=== PATIENT | female | born 1960 | race Caucasian/White ===

== ENCOUNTER 2018-02-21 08:33 | Day surgery (SDC) | payer OTHER ==
[2018-02-19 17:47] VITALS: BMI 29.0
[2018-02-21] MEDS ORDERED: BUPIVACAINE HCL/PF 0.5% (5MG/ML) 10 ML VIAL ONE (09:25)
[2018-02-21] MEDS ORDERED: MIDAZOLAM HCL 2 MG/2 ML SINGLE DOSE VIAL ONE (09:35)
[2018-02-21] MEDS ORDERED: ONDANSETRON 4 MG/2 ML VIAL IVPUSH PRN (09:49)
[2018-02-21] MEDS ORDERED: oxyCODONE HCL 5 MG TABLET PO PRN (09:49)
[2018-02-21] MEDS ORDERED: LACTATED RINGERS SOLUTION 1,000 ML IV SCH (10:00)
--- NOTE | 2018-02-21 10:12 | HP ---
History & Physical Update - History History: No Change - Physical Physical: No Change - Assessment Assessment: No Change - Plan Plan: No Change
[2018-02-21] MEDS ORDERED: CLINDAMYCIN PHOSPHATE 600 MG/4 ML VIAL IVPB ONE (10:30)
[2018-02-21] MEDS ORDERED: CLINDAMYCIN PHOSPHATE 600 MG/4 ML VIAL ONE (10:33)
[2018-02-21] MEDS ORDERED: ePHEDrine SULFATE 50 MG/1 ML AMPULE ONE (11:00)
[2018-02-21] MEDS ORDERED: BACITRACIN 15 GM TUBE TOPICAL OINTMENT ONE (11:03)
--- NOTE | 2018-02-21 11:25 | OP ---
Operative Note - Note: Operative Date: 02/21/18 Pre-Operative Diagnosis: Multiple scalp cysts Operation: Excision multiple scalp cysts Findings: 3 x 2.5 cm and 6 x 6 cm scalp cysts Surgeon: Mehul Whitt Anesthesia: General Specimens Removed: scalp cysts Estimated Blood Loss (mls): 5 Operative Report Dictated: Yes
--- NOTE | 2018-02-21 11:58 | OP ---
DATE OF OPERATION: 02/21/2018 LOCATION: Ambulatory Surgery. PROCEDURE: Excision of multiple scalp cysts (2). PREOPERATIVE DIAGNOSIS: Multiple scalp cysts (2). POSTOPERATIVE DIAGNOSIS: Multiple scalp cysts (2). SURGEON: Mehul Whitt MD ANESTHESIA: General endotracheal. FINDINGS OF PROCEDURE: This is a 57-year-old female who presents with of slowly growing cystic lesion of the scalp at the left parietal region. On physical exam, patient has a two 3 x 2.5 cm scalp cysts of the left frontoparietal area and a 6 x 6 cm cystic lesion of the left parietooccipital area of the scalp. Because of the association with pain, patient desired excision of the cyst and consent was obtained after discussing the risks, benefits, and alternatives of the procedure. DESCRIPTION OF PROCEDURE: Patient was brought to the operating room and placed in supine position. General endotracheal anesthesia was administered. Patient was then placed in a beach chair position with the head turned to the right. The operative site was prepped and draped in the usual sterile fashion using lidocaine 1% with epinephrine. Field block anesthesia was administered for possible analgesia and hemostasis. Using scalp blade number 15, the anterior cyst was excised by making a 2 cm elliptical incision with dissection carried down to the dermis. Using the Metzenbaum scissors, further dissection was done until the cyst was completely excised with an ellipse of skin. Hemostasis was achieved using Bovie cautery of the wound. The wound was closed with meseret. Otherwise, posterior cyst was also excised in the same manner and hemostasis was achieved also using Bovie cautery. The wound was closed also with skin meseret. The wounds were dressed with Bacitracin ointment. Patient was successfully extubated and transferred to the postanesthesia care unit in satisfactory condition. ESTIMATED BLOOD LOSS: About 5 mL. WOUND CLASS: Clean. Patient received 600 mg of clindamycin prior to start of the procedure. Gold [id number] MTDD
[2018-02-21] MEDS ORDERED: ACETAMINOPHEN 325 MG TABLET (FP) ONE (12:39)
[2018-02-21] MEDS ORDERED: ACETAMINOPHEN 325 MG TABLET (FP) PO ONE (12:41)
[2018-02-21 15:30] VITALS: TEMP 97.8
[2018-02-21 16:13] VITALS: BP 122/70; PULSE 70
--- NOTE | 2018-02-25 16:25 | PATH ---
Surgical Pathology Report Patient Name: PAT BOYKIN [facility]. Rec. #: [id number] /Age/Gender: 1960 (Age: 57) / F Account: [id number] Location: [facility] Taken: 02/21/2018 Received: 02/21/2018 Reported: 02/25/2018 Physicians: Mehul Whitt M.D. Specimen(s) Received MULTIPLE SCALP CYST Clinical History Multiple scalp cysts Final Diagnosis SCALP, MULTIPLE CYSTS, EXCISION: TRICHILEMMALCYSTS (PILAR CYST) WITH FOCAL CALCIFICATION. Electronically Signed Letty Wells M.D. Gross Description Received in formalin labeled "multiple scalp cysts," are 2 rao cystic structures measuring 2.5 x 2.1 x 1.4 cm and 5.0 x 3.7 x 3.0 cm. Both portions are surfaced by rao, unremarkable skin with attached hair. The larger cyst is focally disrupted. Comptometer Operator sections are submitted in 2 cassettes as follows: 1-smaller cyst; 2-3-larger cyst. /02/24/2018 saudi/02/24/2018
== END 2018-02-21 14:10 | disposition home or self-care (01) ==
LOC: JASU-SURG 08:33
PROVIDERS: ATTEND Surgery
PROC: 0HB0XZZ Excision of Scalp Skin, External Approach (ICD-10-PCS; principal; 2018-02-21 10:00)
DX: L72.12 Trichodermal cyst (principal)
CPT/HCPCS: 88304-TC; 94760

== ENCOUNTER 2019-05-20 06:04 | Emergency (ER) | payer OTHER ==
[2019-05-20 07:11] VITALS: BMI 34.2
--- NOTE | 2019-05-20 07:47 | PDOC ---
History of Present Illness - General Chief Complaint: Edema Stated Complaint: BI LATERAL LEG EDEMA Time Seen by Provider: 05/20/19 07:35 - History of Present Illness Initial Comments: 05/20/19 07:46 CHIEF COMPLAINT: edema HISTORY OF PRESENT ILLNESS: 58 yo F with hx of acromegaly (followed by Dr. Carrasco) CHF, HTN, pituitary tumor surgery presents to ED with b/l pitting edema x 1 month, more severe to the R leg with tightness and pain. Patient reports she has tried to self treat by elevating feet and taking extra doses of her bumetadine without relief. Patient reports a 20 lb weight gain in the last month. Patient denies shortness of breath or chest pain. PCP: Diana No recent travel or sick contacts. PAST MEDICAL HISTORY: acromegaly, CHF, HTN FAMILY HISTORY: Denies SOCIAL HISTORY: Denies tobacco, alcohol, illicit drug use. SURGICAL HISTORY: pituitary tumor surgery ALLERGIES: PCN REVIEW OF SYSTEMS General/Constitutional: Denies fever or chills. Denies weakness, weight change. HEENT: Denies change in vision. Denies ear pain or discharge. Denies sore throat. Cardiovascular: Denies chest pain or shortness of breath. Respiratory: Denies cough, wheezing, or hemoptysis. Gastrointestinal: Denies nausea, vomiting, diarrhea or constipation. Denies rectal bleeding. Genitourinary: Denies dysuria, frequency, or change in urination. Musculoskeletal: Edema to b/l lower extremities. Skin: Denies rash or easy bruising. Neurologic: Denies headache, vertigo, loss of consciousness, or loss of sensation. Psychiatric: Denies depression or anxiety. PHYSICAL EXAM General Appearance: Well-appearing, appropriately dressed. No apparent distress , no intoxication. HEENT: EOMI, PERRLA, normal ENT inspection, normal voice, TMs normal, pharynx normal. No conjunctival pallor. No photophobia, scleral icterus. Neck: Supple. Trachea midline. No tenderness, rigidity, carotid bruit, stridor , lymphadenopathy, or thyromegaly. Respiratory/Chest: Lungs CTAB. No shortness of breath, chest tenderness, respiratory distress, accessory muscle use. No crackles, rales, rhonchi, stridor , wheezing, dullness Cardiovascular: RRR. S1, S2. No JVD, murmur, bradycardia, tachycardia. Vascular Pulses: Dorsalis-Pedis (R): 2+, Dorsalis-Pedis (L): 2+ Gastrointestinal/Abdominal: Normal bowel sounds. Abdomen soft, non-distended. No tenderness or rebound tenderness. No organomegaly, pulsatile mass, guarding , hernia, hepatomegaly, splenomegaly. Musculoskeletal/Extremities: 3+ lower extremity and pedal edema. + R calf tenderness with erythema. FROM of all extremities. Pelvis Stable. No CVA tenderness. Integumentary: Appropriate color, dry, warm. No cyanosis, erythema, jaundice or rash Neurologic: remote mortgage underwriter II-XII intact. Fully oriented, alert. Appropriate mood/affect. Motor strength 5/5. No appreciable EOM palsy, facial droop or sensory deficit. Past History - Past Medical History Allergies/Adverse Reactions: Allergies Allergy/AdvReac Type Severity Reaction Status Date / Time Penicillins Allergy Mild Rash Verified 05/20/19 07:12 Home Medications: Ambulatory Orders Lisinopril [Prinivil] 40 mg PO DAILY 01/03/13 Potassium Chloride [K-Dur -] 10 meq PO BID 01/03/13 Atenolol [Tenormin] 25 mg PO DAILY 03/01/15 Bumetanide 1 mg PO DAILY 03/01/15 Simvastatin [Zocor -] 5 mg PO ONCE 03/01/15 Pasireotide Pamoate [Signifor Lar] 40 mg IM MONTHLY 02/19/18 Tramadol HCl 50 mg PO QID PRN #20 tablet MDD 4 02/21/18 Anemia: (past hx) Cancer: Yes (PITUITARY TUMOR-ACROMEGALY) CHF: Yes (dx 2011) HTN: Yes Hypercholesterolemia: Yes - Surgical History Abdominal Surgery: Yes - Psycho Social/Smoking Cessation Hx Smoking Status: No Smoking History: Never smoked Have you smoked in the past 12 months: No Number of Cigarettes Smoked Daily: 0 Hx Alcohol Use: No Drug/Substance Use Hx: No Substance Use Type: None Hx Substance Use Treatment: No *Physical Exam - Vital Signs Last Vital Signs Temp Pulse Resp BP Pulse Ox 97.6 F 82 18 144/66 98 05/20/19 06:05 05/20/19 06:05 05/20/19 06:05 05/20/19 06:05 05/20/19 06:05 ED Treatment Course - LABORATORY CBC & Chemistry Diagram: 05/20/19 08:00 05/20/19 08:00 Medical Decision Making - Medical Decision Making 05/20/19 08:47 58 yo F with hx of acromegaly (followed by Dr. Carrasco) CHF, HTN, pituitary tumor surgery presents to ED with b/l pitting edema x 1 month, more severe to the R leg with tightness and pain. -EKG -labs -US 05/20/19 09:15 Us negative for DVT. -Lasix 40 mg IV Labs unremarkable. Patient to f/u with PCP. Referral provided as patient states her previous has left the practice. Advised patient to take medication as prescribed and follow up with PCP within the next week. Advised patient of signs and symptoms for return to ED. Patient verbalized understanding and agrees to plan. Discharge - Discharge Information Problems reviewed: Yes Clinical Impression/Diagnosis: Peripheral edema Condition: Stable Disposition: HOME - Admission No - Follow up/Referral Referrals: Rodney Graves MD [Staff Physician] - - Patient Discharge Instructions Patient Printed Discharge Instructions: DI for Peripheral Edema -- Bilateral - Post Discharge Activity
--- NOTE | 2019-05-20 08:24 | PDOC ---
*Physical Exam - Vital Signs Last Vital Signs Temp Pulse Resp BP Pulse Ox 97.6 F 82 18 144/66 98 05/20/19 06:05 05/20/19 06:05 05/20/19 06:05 05/20/19 06:05 05/20/19 06:05 - Physical Exam 05/20/19 08:24 The patient was examined by [JESSICA Amezquita] under my direct supervision. I personally evaluated the patient. I concur with the above findings and the plan of care. ED Treatment Course - LABORATORY CBC & Chemistry Diagram: 05/20/19 08:00 05/20/19 08:00 Discharge - Discharge Information Problems reviewed: Yes Clinical Impression/Diagnosis: Peripheral edema Condition: Stable Disposition: HOME - Follow up/Referral Referrals: Rodney Graves MD [Staff Physician] - - Patient Discharge Instructions Patient Printed Discharge Instructions: DI for Peripheral Edema -- Bilateral - Post Discharge Activity
[2019-05-20 08:31] LABS: BASO % 1.5 % (0-2.0); EOS % 2.9 % (0-4.5); HEMATOCRIT 30.9 % (32.4-45.2); HEMOGLOBIN 10.5 GM/dL (10.7-15.3); LYMPH % 24.5 % (8-40); MCH 30.2 pg (25.7-33.7); MEAN CELL VOLUME 88.9 fl (80-96); MEAN PLT VOLUME 8.5 fl (7.5-11.1); MONO % 7.6 % (3.8-10.2); NEUT % 63.5 % (42.8-82.8); PLATELET COUNT 289 K/MM3 (134-434); RBC 3.47 M/mm3 (3.60-5.2); RDW 14.9 % (11.6-15.6); WHITE BLOOD COUNT 6.5 K/mm3 (4.0-10.0)
[2019-05-20 08:49] LABS: INR 1.07 (0.83-1.09); PROTHROMBIN TIME (PATIENT) 12.6 SEC (9.7-13.0)
[2019-05-20 08:50] LABS: ALBUMIN 3.6 g/dl (3.4-5.0); ALK PHOS 99 U/L (45-117); ANION GAP 4 MMOL/L (8-16); BILIRUBIN,TOTAL 0.2 mg/dL (0.2-1); BLOOD UREA NITROGEN 18.7 mg/dL (7-18); CALCIUM 8.9 mg/dL (8.5-10.1); CHLORIDE 106 mmol/L (98-107); CO2 31 mmol/L (21-32); CREATININE 0.7 mg/dL (0.55-1.3); GLUCOSE,RANDOM 106 mg/dL (74-106); POTASSIUM 3.5 mmol/L (3.5-5.1); SGOT/AST 20 U/L (15-37); SGPT/ALT 36 U/L (13-61); SODIUM 141 mmol/L (136-145); TOT PROT 7.4 g/dl (6.4-8.2)
[2019-05-20] MEDS ORDERED: FUROSEMIDE 40 MG/4 ML INJECTABLE VIAL IVPUSH ONE (09:03)
[2019-05-20] MEDS ORDERED: FUROSEMIDE 40 MG/4 ML INJECTABLE VIAL ONE (09:08)
[2019-05-20 09:26] VITALS: BP 145/76; PULSE 83; TEMP 98
--- NOTE | 2019-05-21 11:56 | EKG ---
Test Reason : Blood Pressure : / mmHG Vent. Rate : 075 BPM Atrial Rate : 075 BPM P-R Int : 118 ms QRS Dur : 086 ms QT Int : 428 ms P-R-T Axes : 073 -14 -01 degrees QTc Int : 477 ms POOR DATA QUALITY, INTERPRETATION MAY BE ADVERSELY AFFECTED NORMAL SINUS RHYTHM MINIMAL VOLTAGE CRITERIA FOR LVH, MAY BE NORMAL VARIANT SEPTAL INFARCT , AGE UNDETERMINED ABNORMAL ECG WHEN COMPARED WITH ECG OF 03-JAN-2013 22:24, T WAVE INVERSION NO LONGER EVIDENT IN INFERIOR LEADS Confirmed by FREDRICK CONCEPCION MD ([id number]) on 05/21/2019 11:56:07 AM Referred By: Confirmed By:FREDRICK CONCEPCION MD
== END 2019-05-20 09:44 | disposition home or self-care (01) ==
LOC: JER 06:04
PROC: 3E033GC Introduction of Other Therapeutic Substance into Peripheral Vein, Percutaneous Approach (ICD-10-PCS; principal; 2019-05-20)
DX: R60.9 Edema, unspecified (principal); Z88.0 Allergy status to penicillin; I10 Essential (primary) hypertension; I50.9 Heart failure, unspecified; E22.0 Acromegaly and pituitary gigantism; E78.00 Pure hypercholesterolemia, unspecified
CPT/HCPCS: 36415; 80053; 82550; 82553; 83880; 84484; 85025; 85610; 93005; 93010; 93971-TC; 96374; 99282-25